=== PATIENT | female | born 1955 | race Caucasian/White ===

== ENCOUNTER 2018-04-03 21:23 | Emergency (ER) | payer SELFPAY ==
[~2018-04-03] VITALS: Ht 157.5 cm; Wt 64.0 kg
[2018-04-03] MEDS ORDERED: LIDOCAINE HCL/PF 1% 10 MG/ML 5ML VIAL IJ ONE (23:30)
[2018-04-03] MEDS ORDERED: BACITRACIN ZINC OINT UDPKT TOP ONE (23:30)
[2018-04-03] MEDS ORDERED: HYDROCODONE/ACETAMINOPHEN 5/325MG TABLET PO ONE (23:30)
[2018-04-04 00:25] VITALS: BP 132/57
== END 2018-04-04 00:25 | disposition home or self-care (01) ==
LOC: ER 21:23
DX: S61.012A Laceration without foreign body of left thumb without damage to nail, initial encounter (principal); Z98.890 Other specified postprocedural states; Z88.0 Allergy status to penicillin; W26.0XXA Contact with knife, initial encounter; Y93.89 Activity, other specified; Y92.89 Other specified places as the place of occurrence of the external cause; Y99.8 Other external cause status
CPT/HCPCS: 12001; 99283; J3490